=== PATIENT | male | born 1940 | race Caucasian/White ===

== ENCOUNTER 2018-02-09 12:56 | Outpatient (CLI) | payer MEDICARE, BC, SELFPAY ==
--- NOTE | 2018-02-09 | PFT_ITS ---
PULMONARY FUNCTION TEST REPORT Patient identification - Fran Clark DATE OF - 44 DATE OF SERVICE - 02/09/18 REQUESTING PROVIDER - Geoffrey Balderrama M.D. INTERPRETATION OF STUDY Spirometry shows no evidence of obstructive airways disease. No bronchodilator response. LUNG VOLUMES - Lung volumes show mild restriction. DIFFUSION CAPACITY- Severely reduced, which is mildly reduced when corrected alveolar volume. AIRWAY RESISTANCE - Normal. IMPRESSION Mild restrictive lung disease with severe diffusion defect, clinical correlation recommended. Alcira Rahman M.D. AARON/dennis T - 02/11/2018
[2018-02-09] MEDS: Inhaler, Assist Device 1 EACH MC (14:12)
[2018-02-09] MEDS: Albuterol HFA 18 GM 200 PUFF INH IH (14:13)
== END 2018-02-09 13:16 ==
PROVIDERS: PCP Internal Medicine; Visit Provider Internal Medicine Pulmonary Disease
DX: J40 Bronchitis, not specified as acute or chronic (principal)
CPT/HCPCS: 94060; 94150; 94726; 94729

== ENCOUNTER 2018-02-25 15:01 | Outpatient (RCR) | payer MEDICARE, BC, SELFPAY | END 2018-03-26 23:59 | disposition home or self-care (01) | LOC: PRC 15:01 | PROVIDERS: PCP Internal Medicine; Visit Provider Family Medicine | DX: Z51.89 Encounter for other specified aftercare (principal) ==

== ENCOUNTER 2018-03-27 03:34 | Outpatient (RCR) | payer MEDICARE, BC, SELFPAY | END 2018-04-23 23:59 | disposition home or self-care (01) | LOC: PRC 03:34 | PROVIDERS: PCP Internal Medicine; Visit Provider Family Medicine | DX: Z51.89 Encounter for other specified aftercare (principal) ==

== ENCOUNTER 2018-04-25 15:17 | Outpatient (RCR) | payer MEDICARE, BC, SELFPAY | END 2018-05-24 23:59 | disposition home or self-care (01) | LOC: PRC 15:17 | PROVIDERS: PCP Internal Medicine; Visit Provider Family Medicine | DX: Z51.89 Encounter for other specified aftercare (principal) ==